=== PATIENT | female | born 1970 | race Caucasian/White ===

== ENCOUNTER → 2020-05-12 | Outpatient (CLI) | payer OTHER | LOC: LAB 13:55 | DX: Z20.828 Contact with and (suspected) exposure to other viral communicable diseases (principal) ==

== ENCOUNTER → 2020-08-19 | Outpatient (CLI) | payer OTHER ==
[2020-08-19 11:28] LABS: EOS # 0.1 (0.04-0.40); EOS % 2.3 % (1.0-5.0); HEMATOCRIT 39.2 % (37.0-47.0); HEMOGLOBIN 12.5 g/dL (12.5-16.0); LYMPH# 1.5 (1.50-4.00); MEAN CELL VOLUME 85 fl (78-100); MEAN CORPUSCULAR HEMOGLOBIN 27 pg (27-31); MEAN CORPUSCULAR HGB CONC 32 g/dL (33-37); MEAN PLATELET VOLUME 10.7 fl (7.4-10.4); MONO # 0.5 (0.20-0.80); NEU # 3.9 (1.40-6.50); PLATELET COUNT 257 K/mm3 (130-400); RED CELL DISTRIBUTION WIDTH 14.1 % (11.5-14.5); WHITE BLOOD COUNT 6.1 K/mm3 (4.8-10.8)
[2020-08-19 11:43] LABS: POTASSIUM 4.4 mmol/L (3.5-5.1)
[2020-08-19 11:44] LABS: ALBUMIN 4.1 g/dL (3.5-5.0)
[2020-08-19 11:45] LABS: CALCIUM 8.9 mg/dL (8.3-10.5)
[2020-08-19 11:46] LABS: TOTAL PROTEIN 7.2 g/dL (6.4-8.3)
[2020-08-19 11:48] LABS: TOTAL BILIRUBIN 0.4 mg/dL (0.2-1.2)
== END ==
LOC: RAD 11:19
PROVIDERS: Physician Assistant
DX: Z00.00 Encounter for general adult medical examination without abnormal findings (principal); Z13.220 Encounter for screening for lipoid disorders; Z13.29 Encounter for screening for other suspected endocrine disorder; Z76.89 Persons encountering health services in other specified circumstances; M16.11 Unilateral primary osteoarthritis, right hip

== ENCOUNTER 2020-10-22 13:30 | Outpatient (RCR) | payer OTHER | END 2020-10-22 14:00 | disposition home or self-care (01) | LOC: PT 13:30 | DX: M16.11 Unilateral primary osteoarthritis, right hip (principal) ==

== ENCOUNTER → 2020-10-30 | Outpatient (CLI) | payer OTHER | LOC: RAD 13:23 | DX: M25.551 Pain in right hip (principal) | CPT/HCPCS: J3301 ==

== ENCOUNTER → 2020-11-26 | Outpatient (CLI) | payer OTHER | LOC: RAD 15:25 | DX: M17.0 Bilateral primary osteoarthritis of knee (principal); Z98.890 Other specified postprocedural states ==

== ENCOUNTER → 2021-08-27 | Outpatient (CLI) | payer OTHER ==
[2021-08-27 11:24] LABS: BASO # 0.02 (0.02-0.10); EOS # 0.19 (0.04-0.40); HEMOGLOBIN 14.9 g/dL (12.5-16.0); LYMPH# 1.45 (1.50-4.00); MEAN CELL VOLUME 89 fl (78-100); MEAN CORPUSCULAR HEMOGLOBIN 30 pg (27-31); MEAN CORPUSCULAR HGB CONC 34 g/dL (33-37); MEAN PLATELET VOLUME 10.2 fl (7.4-10.4); MONO # 0.45 (0.20-0.80); NEU # 4.24 (1.40-6.50); PLATELET COUNT 253 K/mm3 (130-400); RED BLOOD COUNT 4.96 M/mm3 (4.10-5.30); RED CELL DISTRIBUTION WIDTH 12.5 % (11.5-14.5); WHITE BLOOD COUNT 6.4 K/mm3 (4.8-10.8)
[2021-08-27 11:36] LABS: ALBUMIN 4.1 g/dL (3.5-5.0)
[2021-08-27 11:37] LABS: CALCIUM 9.5 mg/dL (8.3-10.5)
[2021-08-27 11:38] LABS: TOTAL PROTEIN 7.6 g/dL (6.4-8.3)
[2021-08-27 11:40] LABS: TOTAL BILIRUBIN 0.9 mg/dL (0.2-1.2)
[2021-08-27 23:56] LABS: FOLLICLE STIMULATING HORMONE 7.4 mIU/mL (()); LUTENIZING HORMONE 3.6 mIU/mL (())
== END ==
LOC: LAB 11:01
PROVIDERS: Physician Assistant
DX: Z00.00 Encounter for general adult medical examination without abnormal findings (principal); Z13.29 Encounter for screening for other suspected endocrine disorder; N92.6 Irregular menstruation, unspecified; N95.1 Menopausal and female climacteric states; K90.9 Intestinal malabsorption, unspecified

== ENCOUNTER → 2022-06-18 | Outpatient (CLI) | payer OTHER ==
[2022-06-18 09:42] LABS: URINE WBC 0 /hpf (0-3)
[2022-06-18 09:58] LABS: BASO # 0.01 K/mm3 (0.02-0.10); EOS # 0.17 K/mm3 (0.04-0.40); EOS % 2.3 % (1.0-5.0); HEMATOCRIT 44.4 % (37.0-47.0); HEMOGLOBIN 14.8 g/dL (12.5-16.0); LYMPH# 1.35 K/mm3 (1.50-4.00); MEAN CELL VOLUME 92 fl (78-100); MEAN CORPUSCULAR HEMOGLOBIN 31 pg (27-31); MEAN CORPUSCULAR HGB CONC 33 g/dL (33-37); MEAN PLATELET VOLUME 11.3 fl (7.4-10.4); PLATELET COUNT 260 K/mm3 (130-400); RED BLOOD COUNT 4.84 M/mm3 (4.10-5.30); RED CELL DISTRIBUTION WIDTH 12.7 % (11.5-14.5); WHITE BLOOD COUNT 7.3 K/mm3 (4.8-10.8)
[2022-06-18 10:02] LABS: ALBUMIN 4.3 g/dL (3.5-5.0)
[2022-06-18 10:03] LABS: POTASSIUM 4.1 mmol/L (3.5-5.1)
[2022-06-18 10:04] LABS: CALCIUM 9.8 mg/dL (8.3-10.5)
[2022-06-18 10:05] LABS: TOTAL PROTEIN 7.4 g/dL (6.4-8.3)
[2022-06-18 10:07] LABS: TOTAL BILIRUBIN 0.8 mg/dL (0.2-1.2)
[2022-06-18 10:13] LABS: PARTIAL THROMBOPLASTIN TIME 23.8 SECONDS (21.0-32.0); PROTHROMBIN TIME 10.2 SECONDS (9.0-12.0)
[2022-06-18 10:14] LABS: URINE APPEARANCE CLEAR; URINE BILIRUBIN NEGATIVE (NEGATIVE); URINE BLOOD NEGATIVE (NEGATIVE); URINE COLOR YELLOW; URINE GLUCOSE NEGATIVE (NEGATIVE); URINE KETONE NEGATIVE (NEGATIVE); URINE LEUKOCYTE ESTERASE NEGATIVE (NEGATIVE); URINE NITRATE NEGATIVE (NEGATIVE); URINE PROTEIN(semi-quant) NEGATIVE (NEGATIVE); URINE UROBILINOGEN NORMAL (NORMAL)
== END ==
LOC: LAB 08:10
PROVIDERS: Physician Assistant
DX: Z01.812 Encounter for preprocedural laboratory examination (principal); Z01.810 Encounter for preprocedural cardiovascular examination; M16.11 Unilateral primary osteoarthritis, right hip

== ENCOUNTER 2022-07-05 10:57 | Outpatient (RCR) | payer OTHER | END 2022-07-28 | disposition home or self-care (01) | LOC: PT | DX: M25.551 Pain in right hip (principal) ==

== ENCOUNTER 2022-07-29 09:11 | Outpatient (RCR) | payer OTHER | END 2022-08-24 14:26 | LOC: PT 09:11 | DX: M25.551 Pain in right hip (principal) ==